=== PATIENT | male | born 1965 | race Caucasian/White ===

== ENCOUNTER 2024-07-01 12:32 | Emergency (ER) | payer OTHER ==
[~2024-07-01 12:32] MED LIST: Tranexamic Acid 1,000 MG/10 ML Vial TOP SCH
[2024-07-01 13:38] LABS: BASOPHILS ABSOLUTE AUTO 0.09 K/uL (0.00-0.10); BASOPHILS PERCENT AUTO 1.1 % (0.1-1.3); EOSINOPHILS ABSOLUTE AUTO 0.22 K/uL (0.00-0.40); EOSINOPHILS PERCENT AUTO 2.6 % (0.0-5.4); HEMATOCRIT 44.2 % (38.4-49.7); HEMOGLOBIN 15.4 g/dL (12.9-16.9); IMMATURE GRAN ABSOLUTE AUTO 0.04 K/uL (0.00-0.23); IMMATURE GRAN PERCENT AUTO 0.5 % (0.0-0.7); LYMPHOCYTES ABSOLUTE AUTO 1.35 K/uL (0.8-3.3); LYMPHOCYTES PERCENT AUTO 15.8 % (11.4-47.7); MEAN CORPUSCULAR HEMOGLOBIN 29.1 pg (31.6-35.5); MEAN CORPUSCULAR HGB CONC 34.8 g/dL (31.6-35.5); MEAN CORPUSCULAR VOLUME 83.4 fL (81.4-99.0); MONOCYTES ABSOLUTE AUTO 0.88 K/uL (0.20-0.90); MONOCYTES PERCENT AUTO 10.3 % (3.3-12.6); NEUTROPHILS ABSOLUTE AUTO 5.99 K/uL (1.0-7.6); NEUTROPHILS PERCENT AUTO 69.7 % (40.0-78.1); PLATELET COUNT,PLT 240 K/uL (130-375); WHITE BLOOD CELL COUNT,WBC 8.6 K/uL (3.2-11.0)
[2024-07-01 13:55] LABS: PROTHROMBIN TIME 9.9 sec (9.2-10.6)
== END 2024-07-01 14:20 | disposition home or self-care (01) ==
LOC: JP.ED 12:32
DX: R04.0 Epistaxis (principal); Z79.899 Other long term (current) drug therapy; Z79.84 Long term (current) use of oral hypoglycemic drugs
CPT/HCPCS: 36415; 85025; 85610; 99283